=== PATIENT | female | born 1975 | race Caucasian/White ===

== ENCOUNTER → 2018-07-12 08:10 | Outpatient (CLI) | payer OTHER, SELFPAY ==
--- NOTE | 2018-07-12 | DI.MG.S_ITS ---
BILATERAL DIGITAL SCREENING MAMMOGRAM 3D/2D WITH CAD: 07/12/2018 CLINICAL: Routine screening. Family history of breast cancer. Comparison is made to exams dated: 07/06/2017 mammogram, 06/30/2016 mammogram, and 06/25/2015 mammogram - [facility]. There are scattered fibroglandular elements in both breasts. Current study was also evaluated with a Computer Aided Detection (CAD) system. No significant masses, calcifications, or other findings are seen in either breast. There has been no significant interval change. IMPRESSION: NEGATIVE There is no mammographic evidence of malignancy. A 1 year screening mammogram is recommended. This exam was interpreted at Station ID: [id number]. NOTE: For mammograms, a report in lay terms will be sent to the patient. Approximately 15% of breast malignancies will not be visualized mammographically. In the management of a palpable breast mass, a negative mammogram must not discourage biopsy of a clinically suspicious lesion. Electronically Signed By: Trey tafoya/carlye:07/12/2018 09:16:01 letter sent: Normal Exam ACR BI-RADS Category 1: Negative 3341F
== END ==
PROVIDERS: PCP Physician Assistant Medical
DX: Z12.31 Encounter for screening mammogram for malignant neoplasm of breast (principal); Z80.3 Family history of malignant neoplasm of breast
CPT/HCPCS: 77063; 77067

== ENCOUNTER → 2019-12-19 08:27 | Outpatient (CLI) | payer OTHER, SELFPAY ==
--- NOTE | 2019-12-19 | DI.MG.S_ITS ---
BILATERAL DIGITAL SCREENING MAMMOGRAM 3D/2D WITH CAD: 12/19/2019 CLINICAL: Routine screening. Family history of breast cancer. Comparison is made to exams dated: 07/12/2018 mammogram, 07/06/2017 mammogram, and 06/30/2016 mammogram - [facility]. There are scattered fibroglandular elements in both breasts. Current study was also evaluated with a Computer Aided Detection (CAD) system. No significant masses, calcifications, or other findings are seen in either breast. There has been no significant interval change. IMPRESSION: NEGATIVE There is no mammographic evidence of malignancy. A 1 year screening mammogram is recommended. This exam was interpreted at Station ID: [id number]. NOTE: For mammograms, a report in lay terms will be sent to the patient. Approximately 15% of breast malignancies will not be visualized mammographically. In the management of a palpable breast mass, a negative mammogram must not discourage biopsy of a clinically suspicious lesion. Electronically Signed By: Trey tafoya/carley:12/19/2019 10:15:21 letter sent: Normal Exam ACR BI-RADS Category 1: Negative [id number]
== END ==
PROVIDERS: PCP Physician Assistant Medical
DX: Z12.31 Encounter for screening mammogram for malignant neoplasm of breast (principal); Z80.3 Family history of malignant neoplasm of breast
CPT/HCPCS: 77063; 77067

== ENCOUNTER → 2020-12-28 15:22 | Outpatient (CLI) | payer OTHER, SELFPAY ==
--- NOTE | 2020-12-28 15:23 | DI.MG.S_ITS ---
BILATERAL DIGITAL SCREENING MAMMOGRAM 3D/2D WITH CAD: 12/28/2020 CLINICAL: Routine screening. Family history of breast cancer. Comparison is made to exams dated: 12/19/2019 mammogram, 07/12/2018 mammogram, and 07/06/2017 mammogram - [facility]. There are scattered fibroglandular elements in both breasts. Current study was also evaluated with a Computer Aided Detection (CAD) system. There is a possible new asymmetry in the right breast anterior depth central to the nipple seen on the craniocaudal view only. No other significant masses, calcifications, or other findings are seen in either breast. IMPRESSION: INCOMPLETE: NEEDS ADDITIONAL IMAGING EVALUATION The possible new asymmetry in the right breast is indeterminate. Mediolateral and spot compression views as well as additional views with possible ultrasound are recommended. This exam was interpreted at Station ID: [id number]. NOTE: For mammograms, a report in lay terms will be sent to the patient. Approximately 15% of breast malignancies will not be visualized mammographically. In the management of a palpable breast mass, a negative mammogram must not discourage biopsy of a clinically suspicious lesion. Electronically Signed By: Caden Aguilera M.D., jr/carley:12/28/2020 16:16:21 letter sent: Additional Imaging Needed ACR BI-RADS Category 0: Incomplete 3340F
== END ==
PROVIDERS: PCP Physician Assistant Medical; Referring Provider Physician Assistant Medical; Visit Provider Physician Assistant Medical
DX: Z12.31 Encounter for screening mammogram for malignant neoplasm of breast (principal); Z80.3 Family history of malignant neoplasm of breast
CPT/HCPCS: 77063; 77067

== ENCOUNTER → 2021-01-07 14:23 | Outpatient (CLI) | payer OTHER, SELFPAY ==
--- NOTE | 2021-01-07 | DI.US.S_ITS ---
LIMITED ULTRASOUND OF RIGHT BREAST AND AXILLA: 01/07/2021 CLINICAL: Patient returns today to evaluate a focal asymmetry in the right breast. Comparison is made to exams dated: 01/07/2021 mammogram, 12/28/2020 mammogram, 12/19/2019 mammogram, 07/12/2018 mammogram, 07/06/2017 mammogram, and 06/30/2016 mammogram - [facility]. Color flow and real-time ultrasound of the right breast 7 o'clock, and axilla regions were performed. Tomas scale images of the real-time examination were reviewed. There is a 0.5 cm x 0.5 cm x 0.5 cm irregular mass in the right breast at 7 o'clock anterior depth 5 cm from the nipple. This irregular mass is hypoechoic with an echogenic boundary and posterior acoustic shadowing. This correlates with mammography findings. Color flow imaging demonstrates that there is increased vascularity. No significant abnormalities were seen sonographically in the right axilla. IMPRESSION: SUSPICIOUS OF MALIGNANCY The 0.5 cm irregular mass in the right breast corresponds to the screening mammogram finding and is suspicious of malignancy. An ultrasound guided biopsy is recommended. Findings and recommendations were discussed with the patient in person by Dr. Luis Manuel Smith at time of exam. This exam was interpreted at Station ID: [id number]. Electronically Signed By: Jacquelyn alexandre/:01/07/2021 15:33:07 letter sent: Biopsy Required Ultrasound BI-RADS: 4 Suspicious for malignancy
--- NOTE | 2021-01-07 | DI.MG.S_ITS ---
UNILATERAL RIGHT DIGITAL DIAGNOSTIC MAMMOGRAM 3D/2D WITH ADDITIONAL VIEWS: 01/07/2021 CLINICAL: Additional evaluation requested from prior study. Comparison is made to exams dated: 12/28/2020 mammogram, 12/19/2019 mammogram, and 07/12/2018 mammogram - [facility]. There are scattered fibroglandular elements in right breast. There is a 6 mm oval equal density asymmetry with a microlobulated margin in the right breast at 7 o'clock anterior depth. This is seen in additional views. This is more prominent. No other significant masses or calcifications are seen in the breast. IMPRESSION: INCOMPLETE: NEEDS ADDITIONAL IMAGING EVALUATION The 6 mm oval equal density asymmetry in the right breast remains indeterminate. An ultrasound is recommended. This was performed immediately following this exam. This exam was interpreted at Station ID: [id number]. NOTE: For mammograms, a report in lay terms will be sent to the patient. Approximately 15% of breast malignancies will not be visualized mammographically. In the management of a palpable breast mass, a negative mammogram must not discourage biopsy of a clinically suspicious lesion. Electronically Signed By: Jacquelyn alexandre/:01/07/2021 14:59:42 ACR BI-RADS Category 0: Incomplete 3340F
== END ==
PROVIDERS: PCP Physician Assistant Medical; Referring Provider Physician Assistant Medical; Visit Provider Physician Assistant Medical
DX: R92.8 Other abnormal and inconclusive findings on diagnostic imaging of breast (principal); N63.13 Unspecified lump in the right breast, lower outer quadrant
CPT/HCPCS: 76642; 77065; G0279

== ENCOUNTER → 2021-02-01 13:12 | Outpatient (CLI) | payer OTHER, SELFPAY ==
--- NOTE | 2021-02-01 | DI.MG.S_ITS ---
UNILATERAL RIGHT DIGITAL DIAGNOSTIC MAMMOGRAM 3D/2D POST-NEEDLE BIOPSY: 02/01/2021 CLINICAL: Post clip. Comparison is made to exams dated: 02/01/2021 ultrasound biopsy, 01/07/2021 mammogram, 01/07/2021 ultrasound, and 12/28/2020 mammogram - [facility]. There are scattered fibroglandular elements in right breast. There is a marker clip in the appropriate position in the right breast at 7 o'clock middle depth. This marker clip placement is at the biopsy site. IMPRESSION: POST PROCEDURE MAMMOGRAM FOR MARKER PLACEMENT There was a successful marker clip placement in the right breast middle depth. This exam was interpreted at Station ID: [id number]. NOTE: For mammograms, a report in lay terms will be sent to the patient. Approximately 15% of breast malignancies will not be visualized mammographically. In the management of a palpable breast mass, a negative mammogram must not discourage biopsy of a clinically suspicious lesion. Electronically Signed By: Luis Manuel bueno/:02/04/2021 10:38:21 ACR BI-RADS Category Post-procedure mammogram for marker placement
--- NOTE | 2021-02-01 | PATH_ITS ---
[facility] Accession Number: [id number] . 01 Material submitted: . breast - RIGHT BREAST MASS 7:00 5CMFN . 02 Diagnosis: Right Breast Mass 7 o'clock 5 cm from Nipple, Needle Core Biopsy: Fibroadipose tissue and scattered fragments of benign breast parenchyma. Negative for epithelial atypia, ductal carcinoma in situ, or malignancy. No definite mass identified; please correlate with clinical and imaging findings. MRV 02/04/2021 1128 Local . 02 Electronically signed: . Nabila Rothman MD, Pathologist NPI- [id number] . 01 Gross description: . Received one formalin-filled container, labeled with the patient's name and designated right breast mass 7 o'clock 5 cm FN. The specimen is received with a plastic filter in container, sample loose in container and consists of multiple light yellow-means pieces of soft tissue which range in size from 0.1 x 0.1 x 0.1 cm to 1.3 x 0.2 x 0.2 cm. The specimen is filtered and entirely submitted in one cassette. Possible collection date and time per requisition: 02/01/21 at 1410. Total fixation time: Approximately 34 hours. (DC:[id number]) /FRR 02/02/2021 1626 Local . 02 Pathologist provided ICD-10: N64.9 . 02 CPT . 773558 Performed at: 01 [facility] [address] [id number] MD Vincenzo Martinez MD Phone: [phone] Performed at: 02 [facility] [address] [place], [place] [id number] MD Lona Georges MD Phone: [phone]
--- NOTE | 2021-02-01 13:13 | DI.US.S_ITS ---
ULTRASOUND GUIDED BIOPSY RIGHT BREAST USING VACUUM DEVICE WITH MARKING DEVICE INSERTED: 02/01/2021 CLINICAL: Right breast mass. PATIENT CONSENT: Risks (minor bleeding, infection, vasovagal reaction and repeat procedure), benefits and alternatives were explained to the patient and written informed consent was obtained. Correlation is made to exams dated: 01/07/2021 ultrasound, 01/07/2021 mammogram, 12/28/2020 mammogram, 12/19/2019 mammogram, and 07/12/2018 mammogram - [facility]. An ultrasound guided biopsy using real-time ultrasound was performed for the irregular shaped mass located in the right breast at 7 o'clock middle depth. The skin was prepped in the usual manner. Local anesthetic was administered to the access site. A small incision was made in the breast. The abnormality was approached from the lateral aspect. A biopsy needle was placed adjacent to the abnormality under ultrasound guidance. Once the needle was documented to be in the correct location, six specimens were obtained using the Mammotome biopsy system. The patient received additional local anesthetic during the procedure. A clip was inserted into the biopsy cavity. The specimens were sent to the laboratory for pathological analysis. IMPRESSION: ULTRASOUND GUIDED BIOPSY BENIGN Ultrasound guided biopsy of the mass in the right breast at 7 o'clock middle depth was successful. Pathology results indicated benign fibrofatty tissue. Pathology findings are concordant with radiology findings; however, recommend follow up right breat mammogram and ultrasound in 6 months to document stability. This exam was interpreted at Station ID: [id number]. Luis Manuel bueno,aty/:02/11/2021 16:42:17
== END ==
PROVIDERS: PCP Physician Assistant Medical; Referring Provider Physician Assistant Medical; Visit Provider Physician Assistant Medical
DX: N63.13 Unspecified lump in the right breast, lower outer quadrant (principal)
CPT/HCPCS: 19083; 77065

== ENCOUNTER → 2021-07-26 08:49 | Outpatient (CLI) | payer OTHER, SELFPAY ==
--- NOTE | 2021-07-26 | DI.MG.S_ITS ---
UNILATERAL RIGHT DIGITAL DIAGNOSTIC MAMMOGRAM 3D/2D: 07/26/2021 CLINICAL: Short term follow up of the right breast. Comparison is made to exams dated: 02/01/2021 mammogram, 01/07/2021 mammogram, 12/28/2020 mammogram, 12/19/2019 mammogram, 07/12/2018 mammogram, and 02/01/2021 ultrasound biopsy - [facility]. There are scattered fibroglandular elements in right breast. Asymmetry in the right breast at 7 o'clock anterior depth. This is less prominent and correlates with the prior benign biopsy. No other significant masses or calcifications are seen in the breast. IMPRESSION: INCOMPLETE: NEEDS ADDITIONAL IMAGING EVALUATION Asymmetry in the right breast is indeterminate. A targeted ultrasound is recommended and will immediately follow. This exam was interpreted at Station ID: [id number]. NOTE: For mammograms, a report in lay terms will be sent to the patient. Approximately 15% of breast malignancies will not be visualized mammographically. In the management of a palpable breast mass, a negative mammogram must not discourage biopsy of a clinically suspicious lesion. Electronically Signed By: Yuri Aguilar M.D. slc/:07/26/2021 09:20:26 ACR BI-RADS Category 0: Incomplete 3340F
--- NOTE | 2021-07-26 | DI.US.S_ITS ---
LIMITED ULTRASOUND OF RIGHT BREAST: 07/26/2021 CLINICAL: 6 month follow-up post negative Rt breast biopsy. Comparison is made to exams dated: 07/26/2021 mammogram, 02/01/2021 mammogram, 02/01/2021 ultrasound biopsy, 01/07/2021 ultrasound, 01/07/2021 mammogram, and 12/28/2020 mammogram - [facility]. Color flow and real-time ultrasound of the right breast 7 o'clock region were performed. Tomas scale images of the real-time examination were reviewed. There is a 0.4 cm x 0.4 cm x 0.4 cm mass in the right breast at 7 o'clock anterior depth 5 cm from the nipple. This abnormality is less prominent and correlates with mammography findings and the previous biopsy. Color flow imaging demonstrates that there is no vascularity present. Biopsy clip is not see on ultrasound. IMPRESSION: BENIGN There is no sonographic evidence of malignancy. The 0.4 cm mass in the right breast corresponding to the prior biopsy site is stable to slightly decreased in size and is benign. Return to annual mammogram screening schedule is recommended. Exam findings were conveyed to the patient. This exam was interpreted at Station ID: [id number]. Electronically Signed By: Yuri Aguilar M.D. slc/:07/26/2021 10:09:23 letter sent: Normal Exam Ultrasound BI-RADS: 2 Benign
== END ==
PROVIDERS: PCP Physician Assistant Medical; Referring Provider Physician Assistant Medical; Visit Provider Physician Assistant Medical
DX: R92.8 Other abnormal and inconclusive findings on diagnostic imaging of breast (principal); D24.1 Benign neoplasm of right breast
CPT/HCPCS: 76642; 77065; G0279

== ENCOUNTER → 2022-01-08 07:59 | Outpatient (CLI) | payer OTHER, SELFPAY ==
--- NOTE | 2022-01-08 | DI.MG.S_ITS ---
BILATERAL DIGITAL SCREENING MAMMOGRAM 3D/2D WITH CAD: 01/08/2022 CLINICAL: Routine screening. Family history of breast cancer. Comparison is made to exams dated: 12/28/2020 mammogram, 12/19/2019 mammogram, and 07/12/2018 mammogram - [facility]. There are scattered areas of fibroglandular density in both breasts (category b / 25%-50% glandular tissue). Current study was also evaluated with a Computer Aided Detection (CAD) system. There is a biopsy clip in the right breast. There are mole markers on both breasts. No significant masses, calcifications, or other findings are seen in either breast. There has been no significant interval change. IMPRESSION: NEGATIVE There is no mammographic evidence of malignancy. A 1 year screening mammogram is recommended. This exam was interpreted at Station ID: [id number]. NOTE: For mammograms, a report in lay terms will be sent to the patient. Approximately 15% of breast malignancies will not be visualized mammographically. In the management of a palpable breast mass, a negative mammogram must not discourage biopsy of a clinically suspicious lesion. Electronically Signed By: Keli wahl/carley:01/08/2022 12:54:45 letter sent: Normal Exam ACR BI-RADS Category 1: Negative 3341F
== END ==
PROVIDERS: PCP Physician Assistant Medical; Referring Provider Physician Assistant Medical; Visit Provider Physician Assistant Medical
DX: Z12.31 Encounter for screening mammogram for malignant neoplasm of breast (principal); Z80.3 Family history of malignant neoplasm of breast
CPT/HCPCS: 77063; 77067

== ENCOUNTER 2022-09-28 16:10 | Emergency (ER) | payer OTHER, SELFPAY ==
[2022-09-28] VITALS (15 sets, daily range): BP systolic 135–148; BP diastolic 67–75; PULSE 101–120; RESP 20; TEMP 37.2; O2SAT 95–100; BMI 28.8
--- NOTE | 2022-09-28 | DI.RAD.S_ITS ---
PROCEDURE: XR ELBOW LT MIN 3V INDICATIONS: LEFT ELBOW PAIN POST FALL TECHNIQUE: 3 views of the elbow were acquired. COMPARISON: None. FINDINGS: Bones: No fractures or dislocations. No suspicious bony lesions. Soft tissues: No elbow joint effusion. No suspicious soft tissue calcifications. Focal soft tissue swelling overlying the posterior elbow. IMPRESSION: Posterior left elbow soft tissue swelling which may represent olecranon bursitis. No definite underlying fracture. Normal alignment. If there is persistent clinical concern for occult fracture given adequate mechanism of injury, consider repeat imaging in 10-14 days. Dictated by: Trey Langford M.D. on 09/28/2022 at 16:25 Approved by: Trey Langford M.D. on 09/28/2022 at 16:26
--- NOTE | 2022-09-28 16:22 | DI.RAD.S_ITS ---
PROCEDURE: XR ANKLE LT MIN 3V INDICATIONS: fall with injuries TECHNIQUE: 3 views of the ankle were acquired. COMPARISON: None. FINDINGS: Bones: No fractures or dislocations. Ankle mortise is normally aligned. No suspicious bony lesions. Soft tissues: No tibiotalar joint effusion. Achilles tendon appears normal. Soft tissue swelling overlying the lateral malleolus. IMPRESSION: Lateral malleolar soft tissue swelling. No fracture or dislocation identified. If there is persistent clinical concern for occult fracture given adequate mechanism of injury, consider repeat imaging in 10-14 days. Dictated by: Trey Langford M.D. on 09/28/2022 at 16:21 Approved by: Trey Langford M.D. on 09/28/2022 at 16:22
--- NOTE | 2022-09-28 16:22 | DI.RAD.S_ITS ---
PROCEDURE: XR ANKLE RT MIN 3V INDICATIONS: fall with injuries TECHNIQUE: 3 views of the ankle were acquired. COMPARISON: None. FINDINGS: Bones: Acute oblique fracture through distal fibular shaft is seen with slight dorsal and lateral displacement at fracture site. Acute transverse fracture through base of medial malleolus is also seen with slight inferior displacement at fracture site. Acute oblique fracture through posterior aspect of distal tibia is also seen with minimal dorsal displacement. No dislocation. No suspicious bony lesions. Soft tissues: Soft tissue swelling surrounding ankle joint is seen. Achilles tendon appears normal. IMPRESSION: Acute slightly displaced trimalleolar fracture as above. Dictated by: Ernst Soto M.D. on 09/28/2022 at 17:08 Approved by: Ernst Soto M.D. on 09/28/2022 at 17:11
--- NOTE | 2022-09-28 16:22 | DI.RAD.S_ITS ---
PROCEDURE: XR FOOT LT MIN 3V INDICATIONS: fall with injuries TECHNIQUE: 3 views of the foot were acquired. COMPARISON: None. FINDINGS: Bones: There is moderate soft tissue swelling overlying the lateral ankle. Age-indeterminate ossifications noted adjacent to the lateral margin of the calcaneus. Remainder of the visualized osseous structures appear intact. No suspicious bony lesions. Soft tissues: No tibiotalar joint effusion. Achilles tendon appears normal. Lateral left foot soft tissue swelling. IMPRESSION: Lateral malleolar and lateral left foot soft tissue edema with age-indeterminate ossifications adjacent to the lateral margin of the distal calcaneus. Findings may represent sequela of remote injury although acute avulsion fracture fragments not excluded given history of trauma. Recommend correlation with physical examination for point tenderness in this region. Dictated by: Trey Langford M.D. on 09/28/2022 at 16:23 Approved by: Trey Langford M.D. on 09/28/2022 at 16:25
--- NOTE | 2022-09-28 16:22 | DI.RAD.S_ITS ---
PROCEDURE: XR FOOT RT MIN 3V INDICATIONS: fall with injuries TECHNIQUE: 3 views of the foot were acquired. COMPARISON: None. FINDINGS: Bones: Trimalleolar fracture. There is mild subluxation of the tibiotalar joint. Overlying soft tissue edema. Small plantar calcaneal enthesophyte. Remainder of the visualized osseous structures appear intact. Soft tissues: No tibiotalar joint effusion. Achilles tendon appears normal. IMPRESSION: Displaced trimalleolar fracture of the right ankle. Dictated by: Trey Langford M.D. on 09/28/2022 at 16:19 Approved by: Trey Langford M.D. on 09/28/2022 at 16:21
--- NOTE | 2022-09-28 18:24 | ED.GENADULT ---
HPI - General Adult General Chief complaint: Trauma Stated complaint: Bilat ankle inj Time Seen by Provider: 09/28/22 18:05 Source: patient Mode of arrival: Wheelchair History of Present Illness HPI narrative: 47-year-old woman with no significant medical history was walking down the stairs miss the final step injured both ankles and eventually came to land on her left elbow. She did not hit her head and has no other complaints at this time. The injury was at 1:00 a.m. this morning. She was having so much pain in both ankles she was not able to walk which is why was not until this afternoon she was able to get to the emergency department. She was finally able to bear some weight on the left ankle and use a knee roller mobility device. Related Data Previous Rx's Medication Instructions Recorded naproxen 500 mg tablet 500 mg PO TID PRN pain #30 tabs 07/25/21 tranexamic acid 650 mg tablet 1,300 mg PO TID menorrhagia 5 days 07/25/21 #30 tabs cephalexin 500 mg capsule 500 mg PO TID #15 caps 09/28/22 oxycodone-acetaminophen 5 mg-325 1 tab PO Q6H PRN pain #10 tabs 09/28/22 mg tablet Allergies Allergy/AdvReac Type Severity Reaction Status Date / Time Iodine and Iodide Containing Allergy Severe Swelling Verified 09/28/22 16:14 Produc of the Eye penicillin G Allergy Severe ANAPHYLAXIS Verified 09/28/22 16:14 Review of Systems Review of Systems Narrative: Pertinent positive and negative findings as per HPI Patient History Surgical History Ectopic History of left oophorectomy History of third molar tooth extraction History of tonsillectomy (~2002) Status post laparoscopy (~2008) Social History Smoking Status: Never smoker Smoking Status: Never smoker alcohol intake frequency: a few times a week Substance Use Type: does not use Exam Initial Vital Signs Initial Vital Signs: Vital Signs Temperature 98.9 F 09/28/22 16:14 Pulse Rate 108 H 09/28/22 16:14 Respiratory Rate 20 09/28/22 16:14 Blood Pressure 148/67 H 09/28/22 16:14 Pulse Oximetry 100 09/28/22 16:14 Oxygen Delivery Method Room Air 09/28/22 16:14 General: Healthy appearing, in mild pain but Able to give a complete and coherent history. Well-nourished well-developed HEENT: Moist mucous membranes, normal sclera with reactive pupils, Neck: No midline tenderness supple Respiratory: Lungs are clear to auscultation, no wheezing no rales no rhonchi. Full and symmetrical air movement Cardiac: Regular rate and rhythm no murmurs no bruits Abdomen: Soft, nontender, good bowel tones, no flank pain Skin: Some minor abrasions but otherwise Warm and dry, no rashes Neurologic: Grossly neurologically intact with no obvious asymmetries or abnormalities Extremities: Left elbow with moderate abrasion over the olecranon. Possible involvement into the bursa. Elbow is able to straighten completely without pain. Left lower extremity: Knee and hip are unremarkable. Significant contusion to the ankle medial and lateral. She is neurovascularly intact she can bear weight Right lower extremity: Knee and hip are unremarkable. Significant hematoma around the ankle. Minor abrasion to the anterior flores. She is neurovascularly intact. She is not able to move the ankle otherwise secondary to pain Psych: Cooperative, appropriate insight and affect Course Orders Ordered: ED Orders 09/28/22 16:22 XR ankle LT min 3V Stat XR ankle RT min 3V Stat XR foot LT min 3V Stat XR foot RT min 3V Stat 09/28/22 21:40 CT LE RT wo con Stat Discontinued Medications Bacitracin (Bacitracin Oint 0.9 Gm Pckt) 5 applic TOP NOW ONE Stop: 09/28/22 21:14 Last Admin: 09/28/22 22:21 Dose: 5 applic Ibuprofen (Ibuprofen 400 Mg Tablet) 400 mg PO NOW ONE Stop: 09/28/22 21:14 Last Admin: 09/28/22 21:19 Dose: 400 mg Morphine Sulfate (Morphine 4 Mg/Ml Inj) 4 mg IM NOW ONE Stop: 09/28/22 18:07 Last Admin: 09/28/22 18:34 Dose: 4 mg Documented By: BEN Oxycodone/Acetaminophen (Oxycodone/Acetaminophen 5/325 Tablet) 1 tab PO NOW ONE Stop: 09/28/22 21:14 Last Admin: 09/28/22 21:19 Dose: 1 tab Oxycodone/Acetaminophen (Oxycodone/Apap 5/325 Prepack) 1 bottle MISC SEEINSTR ONE Stop: 09/28/22 21:14 Last Admin: 09/28/22 21:19 Dose: 1 bottle Vital Signs Vital signs: Vital Signs - 8 hr 09/28/22 16:14 09/28/22 16:38 09/28/22 17:13 Temperature 98.9 F Pulse Rate 108 H 105 H Respiratory Rate 20 Blood Pressure 148/67 H Pulse Oximetry 100 99 Oxygen Delivery Method Room Air Room Air 09/28/22 17:14 09/28/22 17:14 09/28/22 17:30 Temperature Pulse Rate 103 H Respiratory Rate Blood Pressure 139/75 140/74 Pulse Oximetry 99 Oxygen Delivery Method 09/28/22 17:30 09/28/22 18:00 09/28/22 18:00 Temperature Pulse Rate 111 H 101 H Respiratory Rate Blood Pressure 135/71 Pulse Oximetry 100 98 Oxygen Delivery Method 09/28/22 18:33 09/28/22 19:00 09/28/22 19:30 Temperature Pulse Rate 114 H 120 H 110 H Respiratory Rate Blood Pressure Pulse Oximetry 99 98 99 Oxygen Delivery Method 09/28/22 20:00 09/28/22 20:30 Temperature Pulse Rate 104 H 110 H Respiratory Rate Blood Pressure Pulse Oximetry 99 100 Oxygen Delivery Method Medical Decision Making Lab Data Labs: Urine Dip Bedside Urine Glucose Negative Bedside Urine Bilirubin - Negative Bedside Urine Ketone + 15 Urine Specific [place] 1.030 Bedside Urine Occult Blood +/- Bedside Urine pH 6.0 Bedside Urine Protein +/- 15 Bedside Urine Urobilinogen - Negative Bedside Urine Nitrite - Negative Bedside Urine Leukocytes - Negative Esterase Point of care testing: Urine Dip Bedside Urine Glucose Negative Bedside Urine Bilirubin - Negative Bedside Urine Ketone + 15 Urine Specific [place] 1.030 Bedside Urine Occult Blood +/- Bedside Urine pH 6.0 Bedside Urine Protein +/- 15 Bedside Urine Urobilinogen - Negative Bedside Urine Nitrite - Negative Bedside Urine Leukocytes - Negative Esterase [facility] Narrative Medical decision making narrative: CC: Bilateral ankle pain, subacute injury uncertain prognosis Data collected from: patient, partner Differential considered: Bilateral ankle sprains, ankle fractures, foot fractures, elbow fracture infected left olecranon bursa Exam documented above, pertinent findings include: Knee in bilateral ankle injuries as described above Lab Test not required today Imaging studies independently reviewed: Left foot and ankle x-rays show no specific ankle injury. Foot exam shows age indeterminate ossifications adjacent to the lateral margin of the distal calcaneus, uncertain significance but possibility of avulsion fracture is entertained. Right foot and ankle x-ray: Slightly displaced trimalleolar ankle fracture Consultations: Dr. Cullen, orthopedic surgery. Requests splinting, CT scan post splinting and outpatient follow-up Treatments: Parenteral morphine. Oral ibuprofen and Percocet Re-evaluations: After splint is placed she is feeling much better. Discussed the need for antibiotics because of the elbow wound. Reviewed medications for pain control. Reviewed need for follow-up with orthopedic surgery for definitive treatment of the right ankle fracture. Questions are answered and she is safe for discharge Discharge Plan Departure Patient Disposition: Home Clinical Impression: Laceration of elbow, left Left ankle sprain Qualifiers: Encounter type: initial encounter Involved ligament of ankle: unspecified ligament Qualified Code(s): S93.402A - Sprain of unspecified ligament of left ankle, initial encounter Ankle fracture, right Qualifiers: Encounter type: initial encounter Fracture type: closed Qualified Code(s): S82.891A - Other fracture of right lower leg, initial encounter for closed fracture Instructions: DI for Ankle Fracture, DI for Elbow Bursitis Activity Restrictions/Additional Instructions: Thank you for coming in today Your left elbow has a fairly significant wound. This is cleaned out and a dressing was placed. I am going to suggest 5 days of Keflex to make sure that the bursa associated without elbow does not become infected. There is no indication of elbow fracture Your left ankle is definitely sprain. The foot x-rays note some small bone chips around the heel. Sometimes these can represent small avulsion fractures. When you follow-up with the orthopedic surgeon additional x-rays may help confirm. The fact that you can bear weight on this ankle is reassuring. Your right ankle has a tri malleolar fracture. All 3 points of the ankle are broken. This is an unstable fracture and you can not bear any weight on this foot. You will need to keep the splint in place until you follow-up with the orthopedic surgeon. You will need surgery for this. Using 400 mg of ibuprofen (2 [id number] pills) and 1 Tylenol every 6 hours can be very helpful in controlling pain. For severe pain you can add 1 Percocet. If you choose to use the narcotic please make sure you are using a stool softener to prevent constipation. [facility] [place] Please contact [facility] at [phone] to schedule an outpatient follow-up with Dr. Cavanaugh regarding your trimalleolar ankle fracture on the right side and ankle sprain on the left side If you find that you are getting worse or develop any new symptoms, please feel free to return to the emergency department for further evaluation. Prescriptions: New oxycodone-acetaminophen 5-325 mg tablet 1 tab PO Q6H PRN (Reason: pain) Qty: 10 0RF cephalexin 500 mg capsule 500 mg PO TID Qty: 15 0RF No Action naproxen 500 mg tablet 500 mg PO TID PRN (Reason: pain) Qty: 30 12RF Rx Instructions: Start taking medication 2 days prior to expected start of your period. tranexamic acid 650 mg tablet 1,300 mg PO TID 5 Days Qty: 30 12RF Referrals: Nisha Daley PA-C [Primary Care Provider] - Stand Alone Forms: Patient Portal/API
[2022-09-28] MEDS: MORPHINE 4 MG/ML INJ IM (18:34)
[2022-09-28] MEDS: IBUPROFEN 400 MG TABLET PO (21:19)
[2022-09-28] MEDS: OXYCODONE/APAP 5/325 PREPACK 1 BOTTLE MISC (21:19)
[2022-09-28] MEDS: OXYCODONE/ACETAMINOPHEN 5/325 TABLET 1 TAB PO (21:19)
--- NOTE | 2022-09-28 21:40 | DI.CT.S_ITS ---
PROCEDURE: CT LE RT WO CON INDICATIONS: tri mal fracture, pre op TECHNIQUE: Noncontrast 1-1.5 mm axial sections acquired from above the tibiotalar joint to the bottom of the calcaneus, with coronal and sagittal reformats. COMPARISON: [facility], CR, XR ANKLE RT MIN 3V, 09/28/2022, 16:29. FINDINGS: Image quality: Excellent. Bones: Trimalleolar right ankle fractures redemonstrated. These include a comminuted fracture of the medial malleolus. Fracture extends to the ankle mortise medially. There is also a mildly comminuted fracture of the distal fibula with extension to the distal tibial fibular syndesmosis. No associated syndesmotic widening. A mildly displaced fracture of the posterior malleolus of the distal tibia is also demonstrated. Soft tissues: There is a small tibiotalar joint effusion. Periarticular soft tissue swelling is demonstrated most prominent medially and laterally. IMPRESSION: 1. Trimalleolar fractures of the right ankle redemonstrated. Dictated by: Vincenzo Gonsales M.D. on 09/28/2022 at 23:27 Approved by: Vincenzo Gonsales M.D. on 09/28/2022 at 23:31
[2022-09-28] MEDS: BACITRACIN OINT 0.9 GM PCKT 5 APPLIC TOP (22:21)
--- NOTE | 2022-09-28 22:25 | PC.NURSE ---
Patient denies need for hospital crutches at discharge, states she has a set in the car as well as a knee scooter.
== END 2022-09-28 22:49 | disposition home or self-care (01) ==
PROVIDERS: Emergency Provider Emergency Medicine; PCP Physician Assistant Medical
DX: S82.851A Displaced trimalleolar fracture of right lower leg, initial encounter for closed fracture (principal); S93.402A Sprain of unspecified ligament of left ankle, initial encounter; M70.32 Other bursitis of elbow, left elbow; W10.9XXA Fall (on) (from) unspecified stairs and steps, initial encounter
CPT/HCPCS: 29515; 73080; 73610; 73630; 73700; 81003; 96372; 99284; 99285; J2270

== ENCOUNTER → 2023-01-30 07:48 | Outpatient (CLI) | payer OTHER, SELFPAY ==
--- NOTE | 2023-01-30 | DI.MG.S_ITS ---
BILATERAL DIGITAL SCREENING MAMMOGRAM 3D/2D WITH CAD: 01/30/2023 CLINICAL: Routine screening. Family history of breast cancer. Comparison is made to exams dated: 01/08/2022 mammogram, 07/26/2021 mammogram, 01/07/2021 mammogram, 12/28/2020 mammogram, and 12/19/2019 mammogram - [facility]. There are scattered areas of fibroglandular density in both breasts (category b / 25%-50% glandular tissue). Current study was also evaluated with a Computer Aided Detection (CAD) system. There is a biopsy clip in the right breast. There are mole markers on both breasts. No significant masses, calcifications, or other findings are seen in either breast. There has been no significant interval change. IMPRESSION: NEGATIVE There is no mammographic evidence of malignancy. A 1 year screening mammogram is recommended. Based on the Tyrer Cuzick model (a risk assessment model) the patient's lifetime risk is 17.1% and her 10 year risk is 3.9%. According to the ACR, ACS, and NCCN guidelines, an annual breast MRI exam along with mammogram is recommended if the patient's lifetime risk is 20% or greater. This exam was interpreted at Station ID: [id number]. NOTE: For mammograms, a report in lay terms will be sent to the patient. Approximately 15% of breast malignancies will not be visualized mammographically. In the management of a palpable breast mass, a negative mammogram must not discourage biopsy of a clinically suspicious lesion. Electronically Signed By: Trey tafoya/carley:01/30/2023 19:53:59 letter sent: Normal Exam ACR BI-RADS Category 1: Negative [id number]
== END ==
PROVIDERS: PCP Physician Assistant Medical; Referring Provider Physician Assistant Medical; Visit Provider Physician Assistant Medical
DX: Z12.31 Encounter for screening mammogram for malignant neoplasm of breast (principal); Z80.3 Family history of malignant neoplasm of breast
CPT/HCPCS: 77063; 77067

== ENCOUNTER → 2023-04-03 07:46 | Outpatient (CLI) | payer OTHER, SELFPAY ==
--- NOTE | 2023-04-03 07:48 | DI.US.S_ITS ---
PROCEDURE: US PELVIC COMPLETE INDICATIONS: Menorrhagia, dysmenorrhea TECHNIQUE: Real-time scanning was performed of the pelvic organs, with image documentation. Additional endovaginal scanning was necessary due to incomplete visualization of the adnexal and endometrial structures by transabdominal scanning. COMPARISON: None. FINDINGS: Uterus: Uterus is anteverted and normal in size at 10.8 x 7.2 x 7.6 cm. The myometrium is heterogeneous. The endometrium measures 8 mm combined thickness. Is an anterior submucosal fibroid measuring 4.4 centimeters and a posterior subserosal fibroid measuring 1.8 centimeters. Ovaries: The right ovary measures 6.0 x 4.1 x 5.6 cm. Right ovarian simple cyst measuring 4.9 centimeters. The left ovary is surgically absent. Left adnexal simple cyst measuring 1.0 centimeters. Other: No pathologic free abdominal or pelvic fluid. IMPRESSION: Uterine fibroids as above including a 4.4 centimeter submucosal fibroid which exerts mass effect on the endometrium. Left ovary is surgically absent. Left adnexal simple cyst measuring 1.0 centimeters. Right ovarian simple cyst measuring 4.9 centimeters. Recommend 6-12 week follow-up ultrasound to assess stability or resolution. We strive to produce accurate, complete, and clear reports of imaging services. To assist us in improving patient care, this report was composed using standard report templates and voice recognition software. Therefore, it may contain abnormal punctuation, insertions and/or omissions. Occasional wrong-word or sound-alike substitutions may occur. Though we review the report and make efforts to correct it, we do recommend that the report be read carefully in proper context to recognize any text inaccuracies. Dictated by: Mark Chong M.D. on 04/03/2023 at 10:15 Approved by: Mark Chong M.D. on 04/03/2023 at 10:20
== END ==
LOC: US 07:47
PROVIDERS: PCP Physician Assistant Medical; Referring Provider Physician Assistant Medical; Visit Provider Physician Assistant Medical
DX: N92.0 Excessive and frequent menstruation with regular cycle (principal); N94.6 Dysmenorrhea, unspecified; D25.2 Subserosal leiomyoma of uterus; D25.0 Submucous leiomyoma of uterus; N83.291 Other ovarian cyst, right side; N94.89 Other specified conditions associated with female genital organs and menstrual cycle; Z90.721 Acquired absence of ovaries, unilateral
CPT/HCPCS: 76830; 76856

== ENCOUNTER → 2024-02-05 14:00 | Outpatient (CLI) | payer OTHER, SELFPAY ==
--- NOTE | 2024-02-05 14:00 | DI.MG.S_ITS ---
BILATERAL DIGITAL SCREENING MAMMOGRAM 3D/2D WITH CAD: 02/05/2024 CLINICAL: Routine screening. Family history of breast cancer. Comparison is made to exams dated: 01/30/2023 mammogram, 01/08/2022 mammogram, and 12/28/2020 mammogram - [facility]. There are scattered areas of fibroglandular density (category b / 25%-50% glandular tissue). Current study was also evaluated with a Computer Aided Detection (CAD) system. There is a biopsy clip in the right breast. No significant masses, calcifications, or other findings are seen in either breast. There has been no significant interval change. IMPRESSION: NEGATIVE There is no mammographic evidence of malignancy. A 1 year screening mammogram is recommended. Based on the Tyrer Cuzick model (a risk assessment model) the patient's lifetime risk is 17.1% and her 10 year risk is 4.1%. According to the ACR, ACS, and NCCN guidelines, an annual breast MRI exam along with mammogram is recommended if the patient's lifetime risk is 20% or greater. This exam was interpreted at Station ID: [id number]. NOTE: For mammograms, a report in lay terms will be sent to the patient. Approximately 15% of breast malignancies will not be visualized mammographically. In the management of a palpable breast mass, a negative mammogram must not discourage biopsy of a clinically suspicious lesion. Electronically Signed By: Rahul butt/carley:02/05/2024 14:33:59 letter sent: Normal Exam ACR BI-RADS Category 1: Negative
== END ==
PROVIDERS: PCP Physician Assistant Medical; Referring Provider Physician Assistant Medical; Visit Provider Physician Assistant Medical
DX: Z12.31 Encounter for screening mammogram for malignant neoplasm of breast (principal); Z80.3 Family history of malignant neoplasm of breast
CPT/HCPCS: 77063; 77067